=== PATIENT | female | born 1970 | race Caucasian/White ===

== ENCOUNTER → 2017-08-25 | Outpatient (CLI) | payer OTHER ==
[~2017-08-25] MED LIST: REGADENOSON 0.4 MG/5 ML DISP.SYRIN. IV ONE
--- NOTE | 2017-08-25 13:17 | PCVCIMAG ---
APPROVED REPORT Exam: Nuclear Stress Test Indication: Abnormal EKG, Chest pain, Dyspnea Patient Location: Out-Patient Stress Nurse: Marycarmen Navas RN, Tracy Garner RN DE Tech:Kennedi YanezBONITA ennis Ht: 5 ft 6 in Wt: 165 lbs BSA: 1.84 m2 HR: 87 bpm BP: 122/80 mmHg BMI: 26.6 Rhythm: SR Medical History Medical History: HTN, DM - Non insulin, Current Smoker Medications: Lisinopril Allergies: Levaquin Pretest Chest Pain Characteristics: No chest pain Exercise History: Sedentary Physical Disabilities: Back issues NM EXAM: Myocardial Perfusion REST/STRESS Imaging Protocol: Rest Tc-99m/Stress Tc-99m 1 day Resting Data Rest SPECT myocardial perfusion imaging was performed in supine position 45 minutes following the intravenous injection of 10.7 mCi of Tc-99m Sestamibi. Time of rest injection: 0850 Date: 08/25/2017 Administration Route: IV Administration Site: Right AC Pharmacologic Stress Pharmacologic stress test was performed by injecting Regadenoson 0.4 mg IV push followed by the intravenous injection of 30.1 mCi of Tc-99m Sestamibi. Time of stress injection: 1000 Date: 08/25/2017 Administration Route: IV Administration Site: Right AC Gated Stress SPECT was performed 45 minutes after stress injection. The images were gated to evaluate regional wall motion and calculate left ventricular ejection fraction. Study Data Post stress, the left ventricular ejection was 76%.. SSS: 1 SRS: 3 SDS: 1 Perfusion There is a medium area of moderately reduced uptake in the apical segment of the anterior wall which is seen on the stress images as well as the resting images. This area thickens and moves normally and is most consistent with attenuation artifact. Nuclear Conclusion 1. LOW RISK STUDY Interpreted by: Eleazar Vogt MD Electronically Approved: 08/25/2017 13:16:03 Stress Test Details Stress Test: Pharmacologic stress testing performed using 0.4 mg of regadenoson per 5 mL given IV over 10 seconds. Reason for pharmacologic stress test: physical limitation. HR Resting HR: 87 bpmMax Heart Rate (APMHR): 172 bpm Max HR Achieved: 115 bpmTarget HR (85% APMHR): 146 bpm % of APMHR: 66 Recovery HR: 104 bpm BP Resting BP: 122/80 mmHg Max BP: 103/60 mmHg ECG Resting ECG: Sinus Rhythm Stress ECG: Sinus Tachycardia Arrhythmia: None Recovery ECG: Sinus Rhythm Clinical Reason for Termination: Completed protocol Stress Symptoms: Dyspnea Exercise duration: 0 min 55 sec Symptoms resolved during recovery with caffeine. Stress ECG Conclusion 1. ADEQUATE RESPONSE TO IV LEXISCAN 2. INADEQUATE HEART RATE FOR ECG DIAGNOSIS <Conclusion> 1. ADEQUATE RESPONSE TO IV LEXISCAN 2. INADEQUATE HEART RATE FOR ECG DIAGNOSIS
--- NOTE | 2017-08-25 13:31 | PCVCIMAG ---
APPROVED REPORT Study performed: 08/25/2017 07:58:34 EXAM: Comprehensive 2D, Doppler, and color-flow Echocardiogram Patient Location: Echo lab Status: routine BSA: 1.84 HR: 82 bpmBP: 114/70 mmHg Rhythm: NSR Other Information Study Quality: Adequate Risk Factors: Cardiac Risk Factors: HTN Indications Abnormal ECG Diabetes Dyspnea 2D Dimensions LVEF(%): 37.62 (>50%) IVSd: 11.96 (7-11mm) LVDd: 38.09 mm PWd: 11.83 (7-11mm) LVDs: 31.32 (25-40mm) Left Atrium: 35.20 (27-40mm) Aortic Root: 31.52 mm LV Single Plane 4CH: 58.57 % LV Single Plane 2CH: 63.02 %Garcia's LVEF: 60.79 % Biplane EF: 61.2 % Volumes Left Atrial Volume (Systole) Single Plane 4CH: 43.42 mLSingle Plane 2CH: 39.07 mL LA ESV Index: 23.00 mL/m2 Aortic Valve AoV Peak David.: 1.53 m/s AO Peak Gr.: 9.34 mmHgLVOT Max P.74 mmHg LVOT Max V: 1.20 m/s Mitral Valve E/A Ratio: 0.8 MV Decel. Time: 254.11 ms MV E Max David.: 0.50 m/s MV A David.: 0.64 m/s IVRT: 114.19 ms Pulmonary Valve PV Peak David.: 1.04 m/sPV Peak Gr.: 4.29 mmHg Pulmonary Vein P Vein S: 0.26 m/sP Vein A: 0.38 m/s P Vein D: 0.50 m/sP Vein A Dur.: 134.9 msec P Vein S/D Ratio: 0.52 Tricuspid Valve TR Peak David.: 2.54 m/s TR Peak Gr.: 25.81 mmHg Left Ventricle The left ventricle is normal size. There is normal LV segmental wall motion. Mild concentric left ventricular hypertrophy. Left ventricular systolic function is normal. The left ventricular ejection fraction is within the normal range. LVEF is 60%. Grade I - abnormal relaxation pattern. Right Ventricle The right ventricle is normal size. The right ventricular systolic function is normal. Atria The left atrium size is normal. The right atrium size is normal. Aortic Valve The aortic valve is normal in structure. No aortic regurgitation is present. There is no aortic valvular stenosis. Mitral Valve The mitral valve is normal in structure. There is no mitral valve regurgitation noted. No evidence of mitral valve stenosis. Tricuspid Valve The tricuspid valve is normal in structure. Trace tricuspid regurgitation with PAP of 33 mmHg. Pulmonic Valve The pulmonary valve is normal in structure. There is no pulmonic valvular regurgitation. Great Vessels The aortic root is normal in size. IVC is normal in size and collapses with >50% inspiration Pericardium There is no pericardial effusion. <Conclusion> The left ventricle is normal size. LVEF is 60%. The aortic valve is normal in structure. The mitral valve is normal in structure. The tricuspid valve is normal in structure. Trace tricuspid regurgitation with PAP of 33 mmHg. The pulmonary valve is normal in structure. There is no pericardial effusion.
== END | disposition home or self-care (01) ==
LOC: PCVCIMAG 07:54
PROVIDERS: ATTEND Internal Medicine
DX: R07.9 Chest pain, unspecified (principal); R94.31 Abnormal electrocardiogram [ECG] [EKG]; E11.9 Type 2 diabetes mellitus without complications; R06.00 Dyspnea, unspecified; E78.5 Hyperlipidemia, unspecified; F17.200 Nicotine dependence, unspecified, uncomplicated
CPT/HCPCS: 78452; 93017; 93306; A9500; J2785